=== PATIENT | female | born 1990 | race African-American/Black ===

== ENCOUNTER 2024-01-02 21:21 | Emergency (ER) | payer OTHER ==
[~2024-01-02] VITALS: Ht 165.1 cm; Wt 118.0 kg
[2024-01-02 21:31] VITALS: BP 148/111; RESP 22; TEMP 98.8; O2SAT 100
[2024-01-02 21:32] VITALS: PULSE 105; O2SAT 97
[2024-01-02] MEDS: FAMOTIDINE 20MG/2ML VIAL IV ONE (23:30)
[2024-01-02 23:56] LABS: BASOPHILS % 0.2 % (0.0-2.0); HEMATOCRIT. 39.8 % (36.0-48.0); HEMOGLOBIN. 13.1 g/dL (12.0-16.0); LYMPHOCYTES % 12.7 % (20.0-50.0); MEAN CORPUSCULAR HEMOGLOBIN 26.8 pg (28.0-32.0); MEAN CORPUSCULAR HGB CONC 32.9 g/dL (31.0-37.0); MEAN CORPUSCULAR VOLUME 81.6 fL (81.0-99.0); MEAN PLATELET VOLUME 8.3 fl (7.4-10.4); NEUTROPHILS % 82.1 % (40.0-76.0); PLATELET 321 x1000/uL (130-400); RED BLOOD CELL COUNT 4.88 mill/uL (4.2-5.4); RED CELL DISTRIBUTION WIDTH 14.1 % (11.6-14.6); WHITE BLOOD COUNT 13.6 x1000/uL (4.5-11.0)
[2024-01-03 00:04] LABS: CHLORIDE 105 mEq/L (98-107); POTASSIUM 3.6 mEq/L (3.5-5.1); SODIUM 138 mEq/L (136-145)
[2024-01-03 00:06] LABS: CALCIUM 10.5 mg/dL (8.7-10.4); CARBON DIOXIDE 26 mEq/L (21-32)
[2024-01-03 00:11] LABS: CREATININE 0.9 mg/dL (0.6-1.0); GLUCOSE 122 mg/dL (70-105); UREA NITROGEN BLOOD 13 mg/dL (9-23)
[2024-01-03 00:12] LABS: ALANINE AMINOTRANSFERASE 18 IU/L (10-49)
[2024-01-03 00:13] LABS: ASPARTATE AMINOTRANSFERASE 17 IU/L (<34)
[2024-01-03 00:14] LABS: BILIRUBIN DIRECT 0.1 mg/dL (<=3.0); BILIRUBIN TOTAL 0.4 mg/dL (0.1-1.0); PROTEIN TOTAL 8.2 g/dL (6.0-8.3)
[2024-01-03 00:40] LABS: HCG SCREEN NEGATIVE
[2024-01-03] MEDS: MAGNESIUM/ALUMINUM HYDROXIDE/SIMETHICONE 30ML UDC PO ONE (00:45)
[2024-01-03] MEDS ORDERED: ONDA-239 PO (02:50)
== END 2024-01-03 03:25 | disposition home or self-care (01) ==
LOC: ER 21:21
DX: R10.13 Epigastric pain (principal)
CPT/HCPCS: 80076; 80048; 84703; 83690; 85025; 36415; 96374; 99283; J3490; Z7610 ×2; 81003